=== PATIENT | female | born 2000 | race African-American/Black ===

== ENCOUNTER 2022-09-28 13:15 | Emergency (ER) | payer OTHER ==
[~2022-09-28] VITALS: Ht 165.1 cm; Wt 75.5 kg
[2022-09-28 13:20] VITALS: BP 122/66
[2022-09-28] MEDS ORDERED: ALBU0.0912 INH (13:39)
[2022-09-28] MEDS ORDERED: PRED20TA5 PO (13:39)
[2022-09-28] MEDS ORDERED: PROM118S5 PO (13:40)
[2022-09-28 14:15] VITALS: BP 119/75
--- NOTE | 2022-09-28 14:17 | NUR ---
Patient discharged with v/s stable. Written and verbal after care instructions given and explained. Patient verbalized understanding. Ambulatory with steady gait. All questions addressed prior to discharge. Advised to follow up with PMD.
== END 2022-09-28 14:15 | disposition home or self-care (01) ==
LOC: MED 13:15
DX: J40 Bronchitis, not specified as acute or chronic (principal); Z20.822 Contact with and (suspected) exposure to COVID-19; Z88.0 Allergy status to penicillin; Z79.899 Other long term (current) drug therapy
CPT/HCPCS: 99283